=== PATIENT | male | born 1965 | race Caucasian/White ===

== ENCOUNTER 2021-07-05 07:36 | Emergency (ER) | payer OTHER ==
[~2021-07-05] VITALS: Ht 172.7 cm; Wt 150.0 kg
--- NOTE | 2021-07-05 08:47 | PHYS DOC ---
Past Medical History Past Medical History: Anxiety, Other Additional Past Medical Histor: CHRONIC PAIN Past Surgical History: Tonsillectomy, Other Additional Past Surgical Histo: L-ANKLE, HERNIA, Smoking Status: Never Smoker Alcohol Use: Rarely Drug Use: None General Adult EDM: Chief Complaint: URINARY FREQUENCY HPI: HPI: Patient is a 56 year old male with greater than 2 weeks of back pain, more so right low back pain. He has had the symptoms for over 2 weeks, after being diagnosed with Covid 19. He denies abdominal pain. He reports that he has nighttime urinary urgency. He reports no symptoms during the day. He denies vomiting, diarrhea, constipation. He reports nausea. He denies gross hematuria. He reports urinating normally during the day but has more difficulty at night. He saw his primary care physician a few days ago and was cleared to go back to work. He reports that he just does not feel like he is any better. He is no worse today. He denies any trauma or injury. Denies lower extremity pain. He denies numbness, tingling or motor weakness. He denies urine or stool incontinence. He denies rash. Review of Systems: Review of Systems: Constitutional: Denies fever or chills. [] Respiratory: Denies cough or shortness of breath. [] Cardiovascular: Denies chest pain or edema. [] GI: Denies abdominal pain, vomiting, bloody stools or diarrhea. Reports nausea. : Denies dysuria. Denies gross hematuria. He does report urinary urgency and frequency at night only. Musculoskeletal: Reports back pain. Denies joint pain or swelling. Integument: Denies rash. [] Neurologic: Denies headache, focal weakness or sensory changes. [] Endocrine: Denies polyuria or polydipsia. [] Lymphatic: Denies swollen glands. [] Psychiatric: Chronic anxiety. [] Heart Score: C/O Chest Pain: No Risk Factors: Risk Factors: DM, Current or recent (<one month) smoker, HTN, HLP, family history of CAD, obesity. Risk Scores: Score 0 - 3: 2.5% MACE over next 6 weeks - Discharge Home Score 4 - 6: 20.3% MACE over next 6 weeks - Admit for Clinical Observation Score 7 - 10: 72.7% MACE over next 6 weeks - Early Invasive Strategies Allergies: Allergies: Allergies Coded Allergies Type Severity Reaction Last Updated Verified No Known Drug Allergies 03/02/16 No Physical Exam: PE: Constitutional: Well developed, well nourished, no acute distress, non-toxic appearance. [] HENT: Normocephalic, atraumatic Eyes: Sclera are clear, anicteric Neck: Normal range of motion, no tenderness, supple, trachea midline. Cardiovascular:Heart rate regular rhythm, was 2 radial and posterior tibial pulses bilaterally Lungs & Thorax: Bilateral breath sounds clear to auscultation [] Abdomen: Bowel sounds normal, soft, no tenderness, no masses, no pulsatile masses. No flank or abdominal ecchymoses. No palpable mass organomegaly. Skin: Warm, dry, no erythema, no rash. [] Back: No tenderness, no CVA tenderness. Full range of motion, no midline tenderness, no paraspinal tenderness, no deformity. No step-offs. Extremities: No tenderness, no cyanosis, no clubbing, ROM intact, no edema. No calf tenderness. Neurologic: Alert and oriented X 3, normal motor function, normal sensory function, no focal deficits noted. [] Psychologic: Flat affect, mildly anxious. [] Current Patient Data: Vital Signs: Vital Signs Date Time Temp Pulse Resp B/P (MAP) Pulse Ox O2 Delivery O2 Flow Rate FiO2 07/05/21 08:35 98.3 63 18 125/75 (92) 100 Room Air 98.3 EKG: EKG: [] Radiology/Procedures: Radiology/Procedures: [] Course & Med Decision Making: Course & Med Decision Making Pertinent Labs and Imaging studies reviewed. (See chart for details) The patient is given IV fluids and IV Zofran. I discussed the findings, differential diagnosis and plan of care with the. UA is unremarkable. Laboratory exams are unremarkable. He has an unremarkable exam. This pain is admittedly been present for greater than 2 weeks. Currently, there is no clinical indication for emergent imaging or further emergency laboratory exams, no indication for admission. I have discussed this with the patient. I discussed home care instructions. Return precautions are given. I recommend he contact his primary care physician for further follow-up and treatment. Mariel Disclaimer: Mariel Disclaimer: This electronic medical record was generated, in whole or in part, using a voice recognition dictation system. Departure Departure Impression: Primary Impression: Back pain Additional Impression: Urinary urgency Disposition: HOME / SELF CARE / HOMELESS Condition: STABLE Referrals: MYLES NUNES MD (PCP) Patient Instructions: Back Pain, Adult, Urinary Frequency Additional Instructions: You should continue to take [id number] Tylenol and ibuprofen for pain. You should stay well-hydrated, drink plenty of fluids. Return to the ER for acute injury or trauma, severe abdominal pain, uncontrolled vomiting, dehydration, fever 100.4 or higher, painful blistered rash on your flank or back or other concerns. You should follow-up with your primary care physician for further evaluation and treatment. You may ultimately need to see a urologist for further evaluation of your urinary symptoms. Scripts Ondansetron Hcl (ZOFRAN) 4 Mg Tablet 4 MG PO PRN TID PRN for VOMITING, #15 TAB nausea/vomiting Prov: MIREYA HITCHCOCK DO 07/05/21 MIREYA HITCHCOCK DO Jul 05, 2021 08:47
[2021-07-05] MEDS ORDERED: ONDANSETRON PF 4 MG/2 ML VIAL. IVP ONE (09:00)
[2021-07-05] MEDS ORDERED: IV NORMAL SALINE 1000ML BAG 1,000 ML IV ONE (09:00)
[2021-07-05 09:44] LABS: BASO % 0 % (0-3); CALCIUM 8.8 mg/dL (8.5-10.1); CREATININE 0.9 mg/dL (0.7-1.3); EOS % 0 % (0-3); GFR 87.9; HEMATOCRIT 40.9 % (39.0-53.0); HEMOGLOBIN 13.7 g/dL (13.0-17.5); LYMPH # 1.2 x10^3/uL (1.0-4.8); LYMPH % 12 % (24-48); MEAN CORPUSCULAR HEMOGLOBIN 31 pg (25-35); MEAN CORPUSCULAR HGB CONC 34 g/dL (31-37); MEAN CORPUSCULAR VOLUME 94 fL (79-100); MONO # 0.5 x10^3/uL (0.0-1.1); MONO % 5 % (0-9); NEUT # 8.4 x10^3/uL (1.8-7.7); NEUT % 83 % (31-73); PLATELET COUNT 233 x10^3/uL (140-400); POTASSIUM 4.3 mmol/L (3.5-5.1); RED BLOOD COUNT 4.36 x10^6/uL (4.30-5.70); RED CELL DISTRIBUTION WIDTH 12.9 % (11.5-14.5); WHITE BLOOD COUNT 10.1 x10^3/uL (4.0-11.0)
[2021-07-05 09:51] LABS: ALBUMIN 3.5 g/dL (3.4-5.0); ALBUMIN/GLOBULIN RATIO 0.9 (1.0-1.7); TOTAL BILIRUBIN 0.3 mg/dL (0.2-1.0); TOTAL PROTEIN 7.4 g/dL (6.4-8.2)
[2021-07-05 10:28] VITALS: BP 135/72
[2021-07-05 10:44] LABS: BILIRUBIN,URINE NEGATIVE (NEG); CLARITY,URINE CLEAR; COLOR,URINE YELLOW; NITRITE,URINE NEGATIVE (NEG); PROTEIN,URINE NEGATIVE (NEG-TRACE); UROBILINOGEN,URINE 0.2 mg/dL (0.2 mg/dL)
[2021-07-05 11:02] LABS: BACTERIA,URINE 0 /HPF (0-FEW); RBC,URINE 0 /HPF (0-2); WBC,URINE 0 /HPF (0-4)
[2021-07-05] MEDS ORDERED: ONDA4TAB7 PO (11:17)
== END 2021-07-05 12:00 | disposition home or self-care (01) ==
LOC: ER 07:36
DX: M54.50 Low back pain, unspecified (principal); R39.15 Urgency of urination; R11.0 Nausea; G89.29 Other chronic pain
CPT/HCPCS: 36415; 80053; 81001; 82550; 83690; 85025; 96361; 96374; 99285; J2405; J7030